=== PATIENT | male | born 1995 | race Hispanic/Latino ===

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

== ENCOUNTER 2017-03-27 23:25 | Emergency (ER) | payer MEDICAID, OTHER ==
[~2017-03-27] VITALS: Ht 185.4 cm; Wt 61.4 kg
[~2017-03-27 23:25] MED LIST changes: +OXYC-474 PO
[2017-03-27 23:40] VITALS: BP 131/90; PULSE 76; RESP 16; O2SAT 97
[2017-03-28 00:26] LABS: BASOPHILS % (AUTO) 0.2 % (0-3); EOSINOPHILS % (AUTO) 0.9 % (0-5); MONOCYTES % (AUTO) 7.1 % (4-12); Mean Corpuscular Hemoglobin 31.1 pg (27.0-35.0); Mean Corpuscular Volume 90.2 fL (81-100); NEUTROPHILS % (AUTO) 49.6 % (40-74); Platelet Count 221 bil/L (150-400)
--- NOTE | 2017-03-28 00:31 | ED.REPORT ---
HPI-Abd Pain M Under 40 Date of Service Mar 28, 2017 ED Provider: Warner Corrales MD Patient is a 22 year old male with a history of recurrent kidney stones and frequent ED visits for flank pain who presents to the ED complaining of bilateral flank pain onset 3 days ago. Associated symptoms include dysuria, hematuria, nausea and vomiting. He denies fever. Patient has been using Tylenol and ibuprofen without relief of his symptoms. The patient has had a previous right sided stent placed for his kidney stone and was supposed to return to the have a stent placed on the right two months ago but he was unable to go to his appointment. Nursing Notes Stated Complaint: KIDNEY PAIN/STONES? Chief Complaint: Male Abdominal Pain Nursing Notes Reviewed: Yes Allergies: Coded Allergies: No Known Allergies (Unverified , 08/30/16) Scheduled Nitrofurantoin Monohyd/M-Cryst (MacroBid) 100 Mg Capsule 100 MG PO BID Oxybutynin Chloride (Oxybutynin Chloride) 5 Mg Tablet 5 MG PO TID Oxybutynin Chloride (Oxybutynin Chloride) 5 Mg Tablet 5 MG PO TID Tamsulosin ER (Tamsulosin ER) 0.4 Mg Cap.er.24h 0.4 MG PO DAILY Scheduled PRN Acetaminophen (Acetaminophen) 325 Mg Tablet 650 MG PO Q6H PRN PRN For Fever Docusate Sodium (Docusate Sodium) 250 Mg Capsule 250 MG PO DAILY PRN PRN For Constipation Ibuprofen (Ibuprofen) 600 Mg Tablet 600 MG PO Q6 HR PRN PRN For Pain Ondansetron (Zofran) 4 Mg Tablet 4 MG PO Q4H PRN PRN For Nausea Oxycodone (Roxicodone) 5 Mg Tablet 5 MG PO QID PRN PRN For Pain oxyCODONE (oxyCODONE) 5 Mg Capsule 5 MG PO QID PRN PRN For Pain oxyCODONE-Acetaminophen 5-325 mg (oxyCODONE-Acetaminophen 5-325 mg) 1 Each Tablet 1-2 TAB PO Q6H PRN PRN For Pain General Time Seen by MD: 00:27 Chief Complaint Flank pain right, Flank pain left Hx Obtained From: Patient Arrived By: Walk-in Location: : Flank left: Flank right Quality: Painful Recent Healthcare: Recent doctor visit Similar Sx Previous: Yes Past Medical History Past Medical History Atrial fibrillation Gout Recurrent kidney stones Past Surgical History Cardiac ablation Family History noncontributory Smoking History Never Smoker Social History Alcohol Use: Denies alcohol use Drug Use: Denies drug use, THC Other Social History: Good social support, Lives with parents, Local resident Ambulatory Status Independent Review of Systems Constitutional: Denies: Fever GI: Reports: Nausea, Vomiting Male: Reports Dysuria, Reports Flank pain, Reports Hematuria Complete sys rev & neg: except as marked. Physical Exam Initial Vital Signs Vital Signs (First) Date Time Temp Pulse Resp B/P Pulse Ox O2 Delivery O2 Flow Rate FiO2 03/27/17 23:40 36.9 76 16 131/90 97 Room Air Initial VS: Reviewed General/Constitutional: Awake, Alert Respiratory / Chest: Atraumatic, Breath sounds NL, Breath sounds = bilat, No respiratory distress Cardiovascular: Heart rate NL, Regular rhythm, Heart sounds NL, No gallop, No murmurs, No rubs Abdomen: Atraumatic, Soft, BS normoactive Back: Atraumatic bilateral CVA tenderness Head / Eyes: Atraumatic, Normocephalic Neurologic: Oriented X3, Speech NL Skin: Atraumatic, Color NL, No rash, Warm, Dry Interpretation & Diagnostics Lab Results Interpretation Result Diagram: 03/28/17 0015 03/28/17 0015 Test 03/28/17 00:15 03/28/17 00:16 03/28/17 01:16 White Blood Count 8.0th/mm3 (3.8-10.1) Red Blood Count 4.60mil/mm3 (4.40-5.80) Hemoglobin 14.3g/dL (13.8-17.2) Hematocrit 41.5% (41.0-50.0) Mean Corpuscular Volume 90.2fL (81-100) Mean Corpuscular Hemoglobin 31.1pg (27.0-35.0) Mean Corpuscular Hemoglobin Concent 34.5% (32.0-37.0) Red Cell Distribution Width 11.7% (12.3-15.4) Platelet Count 221bil/L (150-400) Neutrophils (%) (Auto) 49.6% (40-74) Lymphocytes (%) (Auto) 42.0% (14-46) Monocytes (%) (Auto) 7.1% (4-12) Eosinophils (%) (Auto) 0.9% (0-5) Basophils (%) (Auto) 0.2% (0-3) Sodium Level 139mEq/L (134-144) Potassium Level 4.4mEq/L (3.5-5.2) Chloride Level 98mEq/L (97-108) Carbon Dioxide Level 28mmol/L (18-29) Blood Urea Nitrogen 14mg/dL (6-20) Creatinine 0.77mg/dL (0.76-1.27) Estimat Glomerular Filtration Rate 137mL/min (>59) Glucose Level 115mg/dL (60-99) Calcium Level 9.5mg/dL (8.5-10.1) Magnesium Level 2.6mg/dL (1.6-2.6) Total Bilirubin 0.2mg/dL (0.0-1.2) Aspartate Amino Transf (AST/SGOT) 21U/L (0-50) Alanine Aminotransferase (ALT/SGPT) 8U/L (0-44) Alkaline Phosphatase 82U/L (25-150) Total Protein 8.0g/dL (6.4-8.4) Albumin 4.8g/dL (3.4-5.0) Hold [place] Top Tube Received (Received) Urine Color Yellow (YELLOW) Urine Appearance Slightly cloudy Urine pH 7.5 (5.0-8.0) Urine Specific [place] 1.010 (1.003-1.035) Urine Protein 30mg/dL (NEG,TRACE) Urine Glucose (UA) Negativemg/dL (NEGATIVE) Urine Ketones Negativemg/dL (NEGATIVE) Urine Occult Blood Large (NEGATIVE) Urine Nitrite Negative (NEGATIVE) Urine Bilirubin Negative (NEGATIVE) Urine Urobilinogen 2.0mg/dL (NORMAL) Urine Leukocyte Esterase Trace (NEGATIVE) Urine RBC >50/hpf (0-2) Urine WBC 6-10/hpf (0-5) Urine Epithelial Cells Many/hpf (NONE-MOD) Urine Crystals None seen (NONE SEEN) Urine Bacteria Moderate/hpf (NONE-FEW) Urine Hyaline Casts None/lpf (NONE) Urine Granular Casts None seen (NONE SEEN) Urine Waxy Casts None seen (NONE SEEN) Urine Red Blood Cell Casts None seen (NONE SEEN) Urine White Blood Cell Casts None seen (NONE SEEN) Urine Mucus Present (None Seen) Urine Trichomonas None seen (NONE SEEN) Urine Yeast None (NONE SEEN) Urinalysis Comment None Urine Culture Reflexed Indicated Lab Results Interpretation: urine tox: positive for THC and Oxycodone CT Abd / Pelvis Interpretation Bilat renal stones 3-5mm, no hydronephrosis, no ureteral stones Study type: Abdominal CT no contrast Interpretation / Wet Read by: Interpret - Radiologist Re-Eval/Medical Decision Med Decision/Clinical Course 22-year-old male with recurrent urinary stones and infections. Preventing with flank pain nausea no fevers appears nontoxic. He has hematuria and pyuria. On imaging there is no hydronephrosis. Given 2 g of Rocephin in the emergency department and will be treated with cephalexin as an outpatient. He is established with [facility] although he is 22 years old, I recommended that he initially follow up with them for continuity of care. He also needs to establish primary care in this area, we will make a referral. Urine drug screen positive for THC and oxycodone. The patient did disclose to me that he had taken oxycodone from her previous prescription for this pain. Reported he had no further pain medications at home. Re-Evaluation/Progress : Time of Eval: 02:10 Re-Evaluation/Progress Note: Discussed urinanlysis results and plan for CT. Patient Discharge & Departure Primary Impression: Pyelonephritis Disposition: Home Discharge Condition All VS Reviewed: Yes Condition: Stable Patient Instructions: Kidney Infection (ED) Referrals: [facility] Scribe Attestation Portions of this note were transcribed by Xiao Hale. I, Dr. Corrales personally performed the history, physical exam and medical decision-making; I reviewed and confirmed the accuracy of the information in the transcribed note. Signed by: Jorge Luis Gallegos, 03/27/17 Warner Corrales MD Mar 28, 2017 00:31 Alana Hale Mar 28, 2017 00:33
[2017-03-28 00:39] LABS: Magnesium 2.6 mg/dL (1.6-2.6)
[2017-03-28 01:25] LABS: APPEARANCE,URINE SLIGHTLY CLOUDY (CLEAR,HAZY); COLOR,URINE YELLOW (YELLOW); OCCULT BLOOD,URINE LARGE (NEGATIVE); PH,URINE 7.5 (5.0-8.0)
[2017-03-28] MEDS ORDERED: cefTRIAXone Inj 2,000 MG in Dextrose 5% Minibag Plus 50 ML IV ONE (02:10)
[2017-03-28] MEDS ORDERED: ONDA4TAB12 PO (03:07)
[2017-03-28] MEDS ORDERED: CEPH500C PO (03:07)
[2017-03-28] MEDS ORDERED: _Ondansetron ODT 4 mg Tablet PO PRN (03:10)
[2017-03-28] MEDS ORDERED: _oxyCODONE/APAP 5-325 mg Tablet PO PRN (03:10)
[2017-03-28 03:53] VITALS: BP 133/82; PULSE 77; RESP 17; O2SAT 100
--- NOTE | 2017-03-28 08:56 | DRSVH ---
PROCEDURE: CT KUB ([id number]) INDICATIONS: hematuria and bilat flank pain TECHNIQUE: Noncontrast 5 mm thick sections acquired from the diaphragms to the symphysis. 5 mm thick coronal an d sagittal reformats were then performed. For radiation dose reduction, the following was used: aut omated exposure control, adjustment of mA and/or kV according to patient size. COMPARISON: [facility], US, US RENAL, 07/25/2016, 14:33. [facility], CT, CT KUB, 06/02/2016, 11:08. [facility], CT, CT KUB, 01/18/2016, 3:10. [facility] , CT, CT KUB, 06/17/2016, 19:59. [facility], CT, CT KUB, 12/06/2016, 13:32. FINDINGS: Image quality: Excellent. Lung bases: Lung bases are clear. Heart size is normal. Urinary system: There are multiple renal calculi bilaterally measuring 1-3 mm. No hydronephrosis or hydroureter. Both kidneys are normal in size. No kidney stones. No hydronephrosis or perinephric fa t stranding. Both ureters appear non-dilated throughout their expected courses. Bladder wall thickn ess is normal; no calcified bladder stones. Other solid organs: Liver and spleen are normal in size. Gallbladder is normal. Pancreas is normal in contours. No adrenal nodules. Peritoneum and bowel: Unenhanced bowel loops demonstrate normal wall thickness and caliber. No free fluid or air. Nodes and vessels: No retroperitoneal or mesenteric adenopathy by size criteria. Aorta and inferior vena cava are normal in caliber. Abdominal wall: No ventral hernias. Pelvis: No free pelvic fluid. No inguinal hernias or adenopathy. Bones: No suspicious bony lesions. No vertebral body compression fractures. IMPRESSION: 1. Nephrolithiasis bilaterally with multiple 1-3 mm renal calculi. No hydronephrosis. No significant discrepancy with the overnight babysitter radiology preliminary report. Dictated by: Rony Warren M.D. on 03/28/2017 at 8:47 Approved by: Rony Warren M.D. on 03/28/2017 at 8:54
== END 2017-03-28 03:56 | disposition home or self-care (01) ==
LOC: SED 23:25
DX: N12 Tubulo-interstitial nephritis, not specified as acute or chronic (principal); I48.91 Unspecified atrial fibrillation; Z87.442 Personal history of urinary calculi
CPT/HCPCS: 36415; 74176; 80053; 81000; 83735; 85025; 87086; 87088; 96365; 99285; J0696